=== PATIENT | female | born 1985 | race Caucasian/White ===

== ENCOUNTER → 2019-04-13 | Outpatient (CLI) | payer OTHER ==
--- NOTE | 2019-04-13 12:54 | WOMENS IMAGING REPORT ---
EXAM DESCRIPTION: BILAT DIAGNOSTIC MAMMO W/CAD; U/S BREAST UNILAT LIMITED COMPLETED DATE/TIME: 04/13/2019 12:00 pm; 04/13/2019 12:35 pm REASON FOR STUDY: N64.4 BREAST PAIN; N64.4 MASTODYNIA-LEFT; N64.4 MASTODYNIA-RIGHT COMPARISON: None. EXAM PARAMETERS: Standard craniocaudal, 90 mediolateral and mediolateral oblique views of each [address] recorded using digital acquisition with implant displaced and whole breast images. Additional cone compression views upper inner quadrant left breast implant displaced. Bilateral breast ultrasound was also performed, given history of bilateral breast pain. Read with the assistance of CAD: .[facility] - [employer] Representative Version 9.2 LIMITATIONS: None. FINDINGS: RIGHT BREAST MASSES: No suspicious masses. CALCIFICATIONS: No new or suspicious calcifications. ARCHITECTURAL DISTORTION: None. ASYMMETRY: None noted. OTHER: Intact right breast saline retropectoral implant. LEFT BREAST MASSES: No suspicious masses. CALCIFICATIONS: No new or suspicious calcifications. ARCHITECTURAL DISTORTION: None. ASYMMETRY: None noted. OTHER: Intact left breast saline retropectoral implant. Bilateral breast ultrasound: Bilateral whole breast ultrasound was performed given history of bilateral breast pain. Bilateral ax illa ultrasound exam was also performed. No discrete cystic or solid lesions. No dilated ducts. No worrisome acoustic absorption. No focal breast findings. Intact bilateral saline breast implants are identified. IMPRESSION: No mammographic/ tomosynthesis or sonographic evidence for malignancy bilaterally BREAST DENSITY: c. The breasts are heterogeneously dense, which may obscure small masses. BIRAD: ASSESSMENT: 1 Negative. RECOMMENDATION: RECOMMENDED FOLLOW UP: Continued clinical follow-up for breast pain. 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 COMMUNICATION:Patient notified by letter COMMENT: The patient has been notified of the results by letter per MQSA requirements. Additional no tification policies are in place for contacting patient with suspicious or incomplete findings. Quality ID #225: The [employer] recommends an annual screening mammogram for women aged 40 years or over. This facility utilizes a reminder system to ensure that all patients receive reminder letters, and/or direct phone calls for appointments. This includes reminders for routine scr eening mammograms, diagnostic mammograms, or other Breast Imaging Interventions when appropriate. Th is patient will be placed in the appropriate reminder system. TECHNICAL DOCUMENTATION: FINDING NUMBER: (1) ASSESSMENT: (1) JOB ID: [id number] [employer]- All Rights Reserved Reading location - IP/workstation name: [email or web address]
--- NOTE | 2019-04-13 12:54 | WOMENS IMAGING REPORT ---
EXAM DESCRIPTION: BILAT DIAGNOSTIC MAMMO W/CAD; U/S BREAST UNILAT LIMITED COMPLETED DATE/TIME: 04/13/2019 12:00 pm; 04/13/2019 12:35 pm REASON FOR STUDY: N64.4 BREAST PAIN; N64.4 MASTODYNIA-LEFT; N64.4 MASTODYNIA-RIGHT COMPARISON: None. EXAM PARAMETERS: Standard craniocaudal, 90 mediolateral and mediolateral oblique views of each [address] recorded using digital acquisition with implant displaced and whole breast images. Additional cone compression views upper inner quadrant left breast implant displaced. Bilateral breast ultrasound was also performed, given history of bilateral breast pain. Read with the assistance of CAD: .[facility] - [employer] Supervisor Version 9.2 LIMITATIONS: None. FINDINGS: RIGHT BREAST MASSES: No suspicious masses. CALCIFICATIONS: No new or suspicious calcifications. ARCHITECTURAL DISTORTION: None. ASYMMETRY: None noted. OTHER: Intact right breast saline retropectoral implant. LEFT BREAST MASSES: No suspicious masses. CALCIFICATIONS: No new or suspicious calcifications. ARCHITECTURAL DISTORTION: None. ASYMMETRY: None noted. OTHER: Intact left breast saline retropectoral implant. Bilateral breast ultrasound: Bilateral whole breast ultrasound was performed given history of bilateral breast pain. Bilateral ax illa ultrasound exam was also performed. No discrete cystic or solid lesions. No dilated ducts. No worrisome acoustic absorption. No focal breast findings. Intact bilateral saline breast implants are identified. IMPRESSION: No mammographic/ tomosynthesis or sonographic evidence for malignancy bilaterally BREAST DENSITY: c. The breasts are heterogeneously dense, which may obscure small masses. BIRAD: ASSESSMENT: 1 Negative. RECOMMENDATION: RECOMMENDED FOLLOW UP: Continued clinical follow-up for breast pain. 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 COMMUNICATION:Patient notified by letter COMMENT: The patient has been notified of the results by letter per MQSA requirements. Additional no tification policies are in place for contacting patient with suspicious or incomplete findings. Quality ID #225: The [employer] recommends an annual screening mammogram for women aged 40 years or over. This facility utilizes a reminder system to ensure that all patients receive reminder letters, and/or direct phone calls for appointments. This includes reminders for routine scr eening mammograms, diagnostic mammograms, or other Breast Imaging Interventions when appropriate. Th is patient will be placed in the appropriate reminder system. TECHNICAL DOCUMENTATION: FINDING NUMBER: (1) ASSESSMENT: (1) JOB ID: [id number] [employer]- All Rights Reserved Reading location - IP/workstation name: [email or web address]
--- NOTE | 2019-04-13 12:54 | WOMENS IMAGING REPORT ---
EXAM DESCRIPTION: BILAT DIAGNOSTIC MAMMO W/CAD; U/S BREAST UNILAT LIMITED COMPLETED DATE/TIME: 04/13/2019 12:00 pm; 04/13/2019 12:35 pm REASON FOR STUDY: N64.4 BREAST PAIN; N64.4 MASTODYNIA-LEFT; N64.4 MASTODYNIA-RIGHT COMPARISON: None. EXAM PARAMETERS: Standard craniocaudal, 90 mediolateral and mediolateral oblique views of each [address] recorded using digital acquisition with implant displaced and whole breast images. Additional cone compression views upper inner quadrant left breast implant displaced. Bilateral breast ultrasound was also performed, given history of bilateral breast pain. Read with the assistance of CAD: .[facility] - [employer] Executive Version 9.2 LIMITATIONS: None. FINDINGS: RIGHT BREAST MASSES: No suspicious masses. CALCIFICATIONS: No new or suspicious calcifications. ARCHITECTURAL DISTORTION: None. ASYMMETRY: None noted. OTHER: Intact right breast saline retropectoral implant. LEFT BREAST MASSES: No suspicious masses. CALCIFICATIONS: No new or suspicious calcifications. ARCHITECTURAL DISTORTION: None. ASYMMETRY: None noted. OTHER: Intact left breast saline retropectoral implant. Bilateral breast ultrasound: Bilateral whole breast ultrasound was performed given history of bilateral breast pain. Bilateral ax illa ultrasound exam was also performed. No discrete cystic or solid lesions. No dilated ducts. No worrisome acoustic absorption. No focal breast findings. Intact bilateral saline breast implants are identified. IMPRESSION: No mammographic/ tomosynthesis or sonographic evidence for malignancy bilaterally BREAST DENSITY: c. The breasts are heterogeneously dense, which may obscure small masses. BIRAD: ASSESSMENT: 1 Negative. RECOMMENDATION: RECOMMENDED FOLLOW UP: Continued clinical follow-up for breast pain. 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 COMMUNICATION:Patient notified by letter COMMENT: The patient has been notified of the results by letter per MQSA requirements. Additional no tification policies are in place for contacting patient with suspicious or incomplete findings. Quality ID #225: The [employer] recommends an annual screening mammogram for women aged 40 years or over. This facility utilizes a reminder system to ensure that all patients receive reminder letters, and/or direct phone calls for appointments. This includes reminders for routine scr eening mammograms, diagnostic mammograms, or other Breast Imaging Interventions when appropriate. Th is patient will be placed in the appropriate reminder system. TECHNICAL DOCUMENTATION: FINDING NUMBER: (1) ASSESSMENT: (1) JOB ID: [id number] [employer]- All Rights Reserved Reading location - IP/workstation name: [email or web address]
== END ==
LOC: WI 10:55
PROVIDERS: ATTEND Midwife
DX: N64.4 Mastodynia (principal); Z98.82 Breast implant status
CPT/HCPCS: 76642; 77066

== ENCOUNTER 2020-04-25 16:51 | Emergency (ER) | payer OTHER | END 2020-04-25 17:51 | disposition left against medical advice (07) | LOC: ER 16:51 | DX: Z53.21 Procedure and treatment not carried out due to patient leaving prior to being seen by health care provider (principal) ==